=== PATIENT | female | born 1950 | race Caucasian/White ===

== ENCOUNTER 2017-02-10 14:53 | Emergency (ER) | payer MEDICARE, OTHER ==
[~2017-02-10] VITALS: Ht 157.5 cm; Wt 76.8 kg
[~2017-02-10 14:53] MED LIST: ASPI-664 PO; BENA40TA41 PO; CHOL100012 PO; CILO100T PO; CLOP75TA19 PO; DOXA2TAB PO; FAMO-30 PO; GLIM4TAB PO; GLIM4TAB55 PO; HYDR-3672 PO; LOSA50TA2 PO; MTF1000T PO; OMEGA Q PLUS; PENT400T24 PO; PROPANOLOL PO; SITA100T8 PO; TRAM50TA2 PO; VITAMIN D3; [UNRECOGNIZED DRUG - CODE] PO
[2017-02-10 15:00] VITALS: Ht 157.5 cm; Wt 76.8 kg
[2017-02-10] MEDS ORDERED: IBUPROFEN 600 MG TAB PO ONE (15:30)
[2017-02-10] MEDS ORDERED: BENA40TA41 PO (16:14)
[2017-02-10] MEDS ORDERED: ASPI-664 PO (16:14)
[2017-02-10] MEDS ORDERED: PROP40TA4 PO (16:16)
[2017-02-10] MEDS ORDERED: HYDR-3671 PO (16:16)
[2017-02-10] MEDS ORDERED: OMEP40CA6 PO (16:17)
[2017-02-10] MEDS ORDERED: AMLO-147 PO (16:17)
[2017-02-10] MEDS ORDERED: LANT3I SC (16:18)
[2017-02-10] MEDS ORDERED: MULT-542 PO (16:20)
[2017-02-10] MEDS ORDERED: OMEG300C3 PO (16:21)
[2017-02-10] MEDS ORDERED: EXEM25TA PO (16:42)
[2017-02-10] MEDS ORDERED: REPA0.5T3 PO (16:43)
[2017-02-10] MEDS ORDERED: REPA2TAB8 PO (16:43)
--- NOTE | 2017-02-10 16:59 | RADRPT ---
PROCEDURE: Left knee series. CLINICAL INDICATION: Left knee pain TECHNIQUE: The views of the left knee. COMPARISON: Left knee series 07/31/2012 FINDINGS: There is normal mineralization and alignment of the left knee. No acute fracture or dislocation is seen. There is subtle medial and lateral joint space narrowing with osteophyte formation. Chondroc alcinosis is present. No definite joint effusion is seen. Peripheral atherosclerotic calcifications are noted. IMPRESSION: 1. Minimal degenerative change of the left knee. 2. Chondrocalcinosis. 3. Peripheral atherosclerotic vascular disease. RPTAT: AA .Fausto Mc MD, MD Date Time Electronically viewed and signed by .Fausto Mc MD, on 02/10/2017 16:59 .B/
[2017-02-10] MEDS ORDERED: FURO20TA3 PO (17:05)
--- NOTE | 2017-02-10 17:17 | RADRPT ---
PROCEDURE: XR Femur. CLINICAL INDICATION: Left leg pain. TECHNIQUE: AP and lateral views of the left femur were performed. COMPARISON: None. FINDINGS: There is no fracture or dislocation. Surgical clips are present in the left inguinal region. Articular surfaces are intact. There is no lytic or blastic lesion. IMPRESSION: 1. Prior left inguinal surgery. 2. Otherwise unremarkable images of the left femur. RPTAT: QQ .Burke Herrera MD, MD Date Time Electronically viewed and signed by .Burke Herrera MD, MD on 02/10/2017 17:17 .R/
--- NOTE | 2017-02-10 17:23 | ERD ---
ER Documentation Chief Complaint Date/Time DATE: 02/10/17 TIME: 17:20 Chief Complaint LEFT KNEE/THIGH PAIN YESTERDAY TRIP & FALL HPI This is a 66-year-old female who presents to the emergency room for evaluation of left knee pain and thigh pain after a fall yesterday. The patient states that she tripped over some gardening tools and fell on her left knee. The patient's complaining of achy pain in her left knee worse with movement of the knee. She is able to walk and states that she is having pain. She is not taking any medication and came to the ER for evaluation. She denies any numbness or tingling lower extremity ROS All systems reviewed and are negative except as per history of present illness. Medications Home Meds Reported Medications Furosemide* (Furosemide*) Unknown Strength Tablet, MG PO DAILY, #60 TAB 02/10/17 Repaglinide* (Repaglinide*) 2 Mg Tablet, 2 MG PO AC MEALS, TAB 02/10/17 Repaglinide* (Repaglinide*) 0.5 Mg Tablet, 0.5 MG PO QHS, TAB 02/10/17 Exemestane* (Exemestane*) 25 Mg Tablet, 25 MG PO DAILY, TAB 02/10/17 [place]-3 Fatty Acids (Fish Oil) Unknown Strength Capsule, 2 CAP PO DAILY, CAP 02/10/17 Multivitamin* (Daily Value*) 1 Each Tablet, 2 TAB PO DAILY, TAB 02/10/17 Insulin Glargine* (Lantus*) 100 Unit/Ml Soln, 0 SC BID, #1 VIAL TAKE 26 UNITS-QAM AND 22 UNITS-QHS 02/10/17 Amlodipine Besylate* (Amlodipine Besylate*) 10 Mg Tablet, 10 MG PO DAILY, #30 TAB 02/10/17 Omeprazole* (Omeprazole*) 40 Mg Capsule.dr, 40 MG PO DAILY Y for PRN, #30 CAP 02/10/17 Propranolol Hcl* (Propranolol Hcl*) 40 Mg Tablet, 40 MG PO BID, TAB 02/10/17 Hydralazine Hcl* (Hydralazine Hcl*) 25 Mg Tab, 37.5 MG PO TID, #90 TAB 02/10/17 Benazepril Hcl* (Benazepril Hcl*) 40 Mg Tablet, 40 MG PO BID, #30 TAB 02/10/17 Aspirin* (Aspirin* EC) 81 Mg Tablet.dr, 81 MG PO DAILY, TAB 02/10/17 Discontinued Reported Medications Doxazosin Mesylate* (Doxazosin Mesylate*) 2 Mg Tablet, 2 MG PO DAILY 09/20/13 Pentoxifylline* (Trental*) 400 Mg Tablet.sa, 400 MG PO TID 09/20/13 Glimepiride* (Glimepiride*) 4 Mg Tablet, 4 MG PO BID 09/20/13 Hydralazine Hcl* (Apresoline*) 50 Mg Tab, 50 MG PO TID 09/20/13 Famotidine* (Acid Controller*) 20 Mg Tablet, 20 MG PO BID 12/15/12 Clopidogrel Bisulfate (Plavix) 75 Mg Tablet, 75 MG PO DAILY 12/15/12 [Propanolol] No Conflict Check, 40 MG PO 2 TABS BID 12/15/12 Aspirin* (Aspirin* EC) 81 Mg Tablet.dr, 81 MG PO DAILY 12/15/12 Benazepril Hcl* (Benazepril Hcl*) 40 Mg Tablet, 40 MG PO BID 12/15/12 Metformin* (Glucophage*) 1,000 Mg Tablet, 1000 MG PO BID 12/15/12 Losartan Potassium* (Cozaar*) 50 Mg Tablet, 50 MG PO DAILY 12/15/12 Sitagliptin* (Januvia*) 100 Mg Tablet, 100 MG PO DAILY 12/15/12 Magnesium Oxide (Magox) 400 Mg Tablet, 400 MG PO 12/15/12 [[place] Q Plus W/ Vitamin D3] No Conflict Check 12/15/12 Glimepiride* (Amaryl*) 4 Mg Tablet, 4 MG PO BID 12/15/12 Cholecalciferol (Vitamin D3) 1,000 Unit Tab.chew, 2000 UNITS PO 12/15/12 Tramadol HCl (Tramadol HCl) 50 Mg Tablet, 50 MG PO daily prn 12/15/12 Cilostazol* (Cilostazol*) 100 Mg Tablet, 100 MG PO bid 12/15/12 Allergies Allergies: Coded Allergies: No Known Allergy (Verified , 02/10/17) PMhx/Soc History of Surgery: Yes (PREVIOUS ANGIOGRAM) Anesthesia Reaction: No Hx Neurological Disorder: No Hx Respiratory Disorders: No Hx Cardiac Disorders: Yes (HTN) Hx Psychiatric Problems: No Hx Miscellaneous Medical Probl: No Hx Alcohol Use: No Hx Substance Use: No Hx Tobacco Use: No Smoking Status: Current every day smoker Physical Exam Vitals Vital Signs Date Time Temp Pulse Resp B/P Pulse Ox O2 Delivery O2 Flow Rate FiO2 02/10/17 15:00 99.4 67 20 142/63 97 Physical Exam INITIAL VITAL SIGNS: Reviewed by me GENERAL: The patient is well developed and appropriate for usual state of health in no apparent distress HEENT: Pupils equal, round, and reactive to light. EOMI. There is no scleral icterus. NECK: C-spine is soft and supple, there is no meningismus. There is no cervical lymphadenopathy. LUNGS: Clear to auscultation bilaterally. There are no rales, wheezes or rhonchi. HEART: Regular rate and rhythm, no murmurs, clicks, rubs or gallops. ABDOMEN: Soft, non-tender, non-distended. There are bowel sounds in all four quadrants. No rebound or guarding. EXTREMITIES: Soft tissue swelling of the left patella, there is no peripheral cyanosis or edema. No focal swelling or erythema. NEUROLOGICAL: The patient moves all four extremities with 5/5 strength. Cranial nerves II - XII are intact. Normal gait. Alert and oriented SKIN: There is no apparent rash or petechiae. HEME/LYMPHATIC: There is no evidence of excessive bruising or lymphedema. PSYCHIATRIC: The patient does not appear anxious or depressed. Results 24 hrs Current Medications Medications (Trade) Dose Ordered Sig/Loan Route PRN Reason Start Time Stop Time Status Last Admin Dose Admin Ibuprofen (Motrin) 600 mg ONCE ONCE PO 02/10/17 15:30 02/10/17 15:31 DC 02/10/17 15:37 Procedures/MDM X-ray Knee 3V Interpreted by me: Bones: No fracture Joints: No dislocation Foreign body: None X-ray Femur 2V Interpreted by me: Bones: No fracture Joints: No dislocation Foreign body: None This 66-year-old female presents to the emergency room for evaluation of left- sided knee pain and lower extremity pain after ground-level fall. When I evaluated this patient she did have minor soft tissue swelling. X-rays did not reveal any fracture. The patient was given motion, she is able to ambulate with only minor difficulty and she is able to bear weight. Since this patient will be discharged at this time with a prescription for Motrin, instructions to follow with primary care physician for Departure Diagnosis: Primary Impression: Contusion of left knee Additional Impressions: Contusion of left hip Fall from ground level Condition: Stable VERENA MIRANDA DO February 10, 2017 17:23
[2017-02-10] MEDS ORDERED: IBUP-1542 PO (17:24)
[2017-02-10 18:11] VITALS: BP 129/68; PULSE 77; RESP 16
== END 2017-02-10 18:12 | disposition home or self-care (01) ==
LOC: E/R 14:53
DX: S80.02XA Contusion of left knee, initial encounter (principal); S70.02XA Contusion of left hip, initial encounter; I10 Essential (primary) hypertension; E11.9 Type 2 diabetes mellitus without complications; F17.210 Nicotine dependence, cigarettes, uncomplicated; W01.0XXA Fall on same level from slipping, tripping and stumbling without subsequent striking against object, initial encounter; Y92.9 Unspecified place or not applicable; Z79.4 Long term (current) use of insulin; Z79.84 Long term (current) use of oral hypoglycemic drugs; Z79.82 Long term (current) use of aspirin
CPT/HCPCS: 73550; 73560